=== PATIENT | male | born 1995 | race Caucasian/White ===

== ENCOUNTER 2022-08-04 20:50 | Emergency (ER) | payer MEDICAID ==
[~2022-08-04] VITALS: Ht 170.2 cm; Wt 68.0 kg
[2022-08-04 21:19] VITALS: BP 151/77
--- NOTE | 2022-08-04 21:28 | NUR ---
TO LOBBY FOLLOWING TRIAGE
[2022-08-04] MEDS ORDERED: IBUPROFEN 400 MG TAB PO ONE (22:40)
--- NOTE | 2022-08-04 22:52 | NUR ---
DEBORAH TAKEN TO RAD VIA W/C
--- NOTE | 2022-08-04 22:52 | NUR ---
BOBBYN MEDICATED PER ORDERS. TOLERATED WELL.
--- NOTE | 2022-08-04 23:05 | NUR ---
PT TAKEN TO BED 8
[2022-08-04 23:36] VITALS: BP 146/70
--- NOTE | 2022-08-04 23:38 | NUR ---
Patient discharged with v/s stable. Written and verbal after care instructions given SHOULDER PAIN and explained. Patient alert, oriented and verbalized understanding of instructions. Ambulatory with steady gait. All questions addressed prior to discharge. ID band removed. Patient advised to follow up with PMD.
--- NOTE | 2022-08-04 23:39 | NUR ---
ARM SLING PROVIDED PER ERMD INSTRUCTIONS, PT TOLERATED THE SLING WELL
== END 2022-08-04 23:38 | disposition home or self-care (01) ==
LOC: MED 20:50
DX: M25.511 Pain in right shoulder (principal)
CPT/HCPCS: 73030; 99283